=== PATIENT | male | born 1970 | race African-American/Black ===

== ENCOUNTER 2017-03-09 00:18 | Emergency (ER) | payer SELFPAY ==
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
--- NOTE | 2017-03-09 00:57 | Diagnostic Imaging Report ---
MECCA PHELPS [facility] [id number] [facility].[address] [address] Report Submission Date: Mar 09, 2017 12:52:36 AM CDT Patient Study Name: SAMMY RICH Date: Mar 09, 2017 12:37:28 AM CDT Modality Type: CR Gender: M Description: UPPER EXTREMITY : 72 Institution: [facility] Physician: MECCA PHELPS Right wrist - three views Clinical history: Pain for 3 days. Findings: Examination of the right wrist in palmar, lateral and oblique views fails to demonstrate evidence of fracture, dislocation or other bone or joint pathology. Electronically signed on Mar 09, 2017 12:52:36 AM CDT by: Gonzales HERNANDEZ
[2017-03-09] MEDS ORDERED: KETOROLAC TROMETHAMINE 60 MG/2 ML VIAL IM ONE (00:58)
[2017-03-09] MEDS ORDERED: HYDROcodone /APAP 5/325 1 EACH TABLET PO ONE (00:59)
[2017-03-09 01:20] VITALS: BP 159/94
== END 2017-03-09 01:15 | disposition home or self-care (01) ==
LOC: ED 00:18
DX: M25.531 Pain in right wrist (principal)
CPT/HCPCS: 73110; 96372; 99283; J1885; L3908